=== PATIENT | female | born 1960 | race African-American/Black ===

== ENCOUNTER 2018-12-01 09:46 | Emergency (ER) | payer OTHER ==
[~2018-12-01] VITALS: Ht 167.6 cm; Wt 73.5 kg
[2018-12-01 09:52] VITALS: BP_SYST 135
--- NOTE | 2018-12-01 10:19 | NUR ---
Patient to ER bed 5 to gown for evaluation. Side rails up. Assumed care.
--- NOTE | 2018-12-01 10:25 | NUR ---
Patient arrived via POV, AAOx4, and ambulatory with steady gait. Patient c/c of right eye redness. She states she woke up with the eye redness yesterday, per patient she states there was no discharge, redness was worse yesterday. Redness present today to right lateral eye. Pain to "eye itself" per patient, no swelling or rash present. Patient also notes she has headache to right lateral head origin is right lateral forehead. Patient states she feels like it has something to do with her blood pressure. She has been taking a supplement to help with hot flashes, there are concerns regarding whether that can affect blood pressure, MD aware of question. Patient also notes she has been having "palpitations" for several months now, and she has been ignoring it, until she began having the eye problems. Patient calm and cooperative. Will continue to follow up and monitor.
--- NOTE | 2018-12-01 10:27 | NUR ---
JUN Carmichael at bedside examining patient.
[2018-12-01] MEDS ORDERED: ACETAMINOPHEN 500 MG TABLET PO ONE (10:45)
[2018-12-01 11:08] LABS: BASOPHILS % (AUTO) 0.7 % (0.0-2.0); EOSINOPHILS # (AUTO) 0.1 K/uL (0.0-0.4); EOSINOPHILS % (AUTO) 2.3 % (0.0-4.0); HEMATOCRIT 37.5 % (36-48); HEMOGLOBIN 12.6 g/dL (12.0-16.0); LYMPHOCYTES % (AUTO) 52.4 % (20.5-51.5); MEAN CORPUSCULAR HEMOGLOBIN 33 pg (27-31); MEAN CORPUSCULAR HGB CONC 34 % (32-36); MEAN CORPUSCULAR VOLUME 97 fL (79.0-98.0); MONOCYTES # (AUTO) 0.5 K/uL (0.0-1.0); MONOCYTES % (AUTO) 7.9 % (1.7-9.3); NEUTROPHILS # (AUTO) 2.1 K/uL (1.8-7.7); NEUTROPHILS % (AUTO) 36.7 % (40.0-70.0); PLATELET COUNT (AUTO) 287 K/uL (130-430); RED BLOOD CELL COUNT(AUTO) 3.86 MIL/uL (4.2-6.2); RED CELL DISTRIBUTION WIDTH 13.2 % (9.0-15.0); WHITE BLOOD COUNT (AUTO) 5.8 K/uL (4.8-10.8)
[2018-12-01 11:21] LABS: BILIRUBIN,URINE NEGATIVE (NEGATIVE); BLOOD, URINE NEGATIVE (NEGATIVE); CLARITY/URINE CLEAR (CLEAR); COLOR,URINE YELLOW (YELLOW); GLUCOSE,URINE NEGATIVE (NEGATIVE); KETONES,URINE NEGATIVE (NEGATIVE); LEUKOCYTE ESTERASE ,URINE TRACE (NEGATIVE); NITRITE, URINE NEGATIVE (NEGATIVE); PH,URINE 5.5 (5.0-8.0); PROTEIN URINE NEGATIVE (NEGATIVE); UROBILINOGEN,URINE 0.2 (0.2-1.0)
[2018-12-01 11:23] LABS: CALCIUM 9.9 mg/dL (8.4-11.0); POTASSIUM 3.8 mmol/L (3.5-5.1)
[2018-12-01 11:25] LABS: BACTERIA,URINE FEW /HPF (None Seen); RBC,URINE 0-3 /HPF (0-3)
[2018-12-01 11:28] LABS: PROTHROMBIN TIME 10.1 SECS (9.5-12.5)
[2018-12-01 11:34] LABS: ALBUMIN 3.4 g/dL (3.4-4.8); TOTAL BILIRUBIN 0.3 mg/dL (0.0-1.0)
--- NOTE | 2018-12-01 12:00 | NUR ---
Patient given written and verbal discharge instructions and verbalizes understanding. ER MD discussed with patient the results and treatment provided. Patient in stable condition. ID arm band removed. IV catheter removed intact and dressing applied, no active bleeding. Rx of Macrodantin, Tylenol, and Ativan given. Patient educated on pain management and to follow up with PMD. Pain Scale 2/10. Opportunity for questions provided and answered. Medication side effect fact sheet provided.
[2018-12-01 12:05] VITALS: BP_SYST 154
== END 2018-12-01 12:05 | disposition home or self-care (01) ==
LOC: SED 09:46
DX: H11.31 Conjunctival hemorrhage, right eye (principal); R00.2 Palpitations; N39.0 Urinary tract infection, site not specified; R51 Headache; I10 Essential (primary) hypertension
CPT/HCPCS: 36415; 71045; 80053; 81000-TC; 81025; 84484; 85025; 85610-TC; 85730-TC; 93005; 99284